=== PATIENT | female | born 1950 | race Caucasian/White ===

== ENCOUNTER 2025-11-21 16:04 | Emergency (ER) | payer BC, SELFPAY ==
[2025-11-21 16:07] VITALS: BP 140/78
--- NOTE | 2025-11-21 16:46 | ED.GENMED ---
History of Present Illness
General
Chief Complaint: Dizziness
Source: patient
Exam Limitations: none
Time Seen by Provider: 11/21/25 16:44
History of Present Illness
History of Present Illness:
75yoF with a history of lupus presenting for evaluation of dizziness. Patient reports intermittent dizziness for the past 6 days. She woke up 6 days ago feeling like the room was spinning. Symptoms have been intermittent since then and are
triggered with certain head movements. She denies any current dizziness but does become dizzy if she lays flat or leans forward. She fell twice due to her symptoms but did not lose consciousness. She also is having nausea but has not vomited.
She has chronic tinnitus which seems worse since her symptoms began. She was sick about 3 weeks ago with a URI. Patient went to urgent care so that they could attempt the Lencho maneuver but she was sent to the ED for evaluation. She denies any
headache, visual changes, paresthesias, weakness, chest pain, shortness of breath.
Phy Exam
General Physical Exam
General Presentation: well appearing and no apparent distress
General Skin: warm and dry
General Habitus: normal
General Mental: alert
ENT Exam
ENT Exam: TM's normal, pharynx normal and normocephalic
Eye Exam
Eye Exam: PERRL, EOMI and conjunctiva normal
Cardiovascular Exam
Cardiovascular Exam: regular rate/rhythm
Pulmonary Exam
Pulmonary Exam: lungs clear, no respiratory distress, no rales, no crackles, no rhonchi and no wheezing
Neurological Exam
Neurological Exam: alert, no motor deficits and other (PERRL. EOMs intact. Normal finger to nose and heel to santos bilaterally. )
[place] Coma Scale
Eye Opening: Spontaneous
Verbal Response: Oriented
Motor Response: Obeys Commands
GCS Total Score: 15
Skin Exam
Skin Exam: normal color and warm/dry
Psychiatric Exam
Psychiatric Exam: normal mood/affect
Course
Orders/Labs/Results
Orders:
Orders
11/21/25 16:14
EKG [Electrocardiogram (*1)] Urgent
Reason for Study: Vertigo / Dizzy
11/21/25 16:15
EKG- Treatment ONCE
11/21/25 16:52
Pt Eval And Treat Urgent
Treatment: vestibular eval
Activity Level: Out of Bed- Ad Cherelle
11/21/25 17:28
CT Head W/o Iv Contrast Urgent
Comment:
Reason For Exam: dizziness
11/21/25 17:57
Complete Blood Count/With Diff Urgent
Comprehensive Metabolic Panel Urgent
11/21/25 19:47
Meclizine [Antivert] 25 mg PO NOW STA
Abnormal Lab Results
11/21/25
17:57
WBC 4.3 L 10^3/uL
(4.8-10.8)
RBC 4.15 L 10^6/uL
(4.20-5.40)
Hct 36.8 L %
(37.0-47.0)
MCHC 32.9 L g/dL
(33.0-37.0)
Absolute Lymphs (auto) 0.9 L 10^3/uL
(1.2-3.4)
BUN 18 H mg/dl
(7-17)
11/21/25 17:57
11/21/25 17:57
Vital Signs
Initial and Last Documented VS:
Initial Vital Signs
Temp Pulse Resp BP Pulse Ox
97.5 F 53 20 140/78 100
11/21/25 16:07 11/21/25 16:07 11/21/25 16:07 11/21/25 16:07 11/21/25 16:07
Last Documented Vital Signs
Temp Pulse Resp BP Pulse Ox
97.5 F 58 15 133/72 99
11/21/25 16:07 11/21/25 18:30 11/21/25 18:00 11/21/25 18:00 11/21/25 18:30
MDM/Problems Addressed
Differential Diagnosis Includes:
75yoF here with intermittent dizziness x 6 days. Feels like room is spinning. Worse with head movement. Currently asymptomatic. VSS. Patient well-appearing no distress. Normal [id number] and [id number] testing. No visualized nystagmus.
Differential diagnosis includes: BPPV, vestibular neuritis, labyrinthitis, consider CVA although less likely as symptoms have resolved currently
Initial ED plan: PT consult initially ordered for vestibular testing although unfortunately they are no longer in house. Will check basic labs and head CT. Triage EKG shows sinus bradycardia without ischemic changes.
*Pulse Oximetry
SaO2: 100
Patient hypoxic: no
*EKG
Interpreted by ED Provider?: Yes
EKG Intrepretation Date: 11/21/25
Heart Rate: 55
Rate: bradycardiac
Rhythm: sinus
Sylva: normal axis
Interval: normal interval
QRS Pattern: normal QRS
Ischemia: no ischemia
*Critical Care Note
Total Time (30-74mins, 75-104mins- exclusive of procedures): Not Applicable
Update Note
Update Note:
Labs unremarkable and head CT normal. I performed Lencho maneuver on both sides and symptoms reproduced with movement of head to left side. Patient able to ambulate independently and feels comfortable with discharge. Prescription for meclizine as
well as outpatient vestibular therapy provided. She was instructed to follow-up closely with her PCP and ED return precautions reviewed. Patient in agreement with plan and she was discharged in stable condition.
ED Attending Note
-
Portions of this chart may have been created with voice recognition software.� Occasional wrong word or��sound alike� substitutions may have occurred due to the inherent limitations of voice recognition software.
Discharge Plan
Departure
Patient Disposition: Home (Routine Discharge)
Date of Disposition: 11/21/25
Time of Disposition: 19:50
Patient with high blood pressure during this ER visit?: No
Discharge Problem:
Peripheral vertigo
Instructions: Vertigo (a Type of Dizziness) (DC)
Prescriptions:
New
meclizine 25 mg tablet
25 mg PO TID PRN (Reason: dizziness) Qty: 20 0RF
Referrals:
[facility] [Provider Group]
NONE,* [Family Provider, Internal Medicine]
Activity Restrictions/Additional Instructions:
Take meclizine as needed for dizziness. You may perform the Lencho maneuver at home if you found this helpful.
Please call to make follow-up appointments with your family doctor as well as vestibular therapy.
Return to the ER with any new or worsening symptoms.
Interventions
Interventions:
*General Assessment Last Done: 11/21/25 16:07
*Neglect/Abuse Screening Last Done: 11/21/25 16:07
*ED COVID-19 Vaccine History Last Done: 11/21/25 17:57
*ED Influenza Vaccine History Last Done: 11/21/25 17:57
*Risk Screen - Suicide (C-SSRS) Last Done: 11/21/25 16:07
*Nursing Disposition Last Done: 11/21/25 19:56
ED- Neurological Assessment Last Done: 11/21/25 17:30
ED- Cardiac Assessment Last Done: 11/21/25 19:15
ED Swallowing Screen Last Done: 11/21/25 19:45
Discharge Date and Time
Discharge Date/Time: 11/21/25 19:57
Print Language: FILIPINO
[2025-11-21 16:47] VITALS: BP 121/82
[2025-11-21 17:00] VITALS: BP 130/72
[2025-11-21 17:58] VITALS: BMI 33.8
[2025-11-21 18:00] VITALS: BP 133/72
[2025-11-21 18:07] LABS: Hematocrit 36.8 % (37.0-47.0); Hemoglobin 12.1 g/dL (12.0-16.0); Mean Corp Hgb Conc. 32.9 g/dL (33.0-37.0); Mean Corpuscular Volume 88.7 fL (81.0-99.0); Nucleated Red Blood Cells % 0 %; Platelet Count 236 10^3/uL (130-400); Red Cell Dist. Width 13.0 % (11.5-14.5)
[2025-11-21 18:29] LABS: ALT (SGPT) 14 U/L (0-35); AST (SGOT) 21 U/L (14-36); Albumin 4.0 g/dl (3.5-5.0); Alkaline Phosphatase 91 U/L (38-126); Blood Urea Nitrogen 18 mg/dl (7-17); Calcium 9.6 mg/dl (8.4-10.2); Carbon Dioxide 26 mmol/L (22-30); Chloride 107 mmol/L (98-107); Estimated Creatinine Clearance 89 ml/min; Glucose 87 mg/dl (70-99); Potassium 4.7 mmol/L (3.5-5.1); Sodium 137 mmol/L (135-145); Total Protein 6.7 g/dl (6.3-8.2); eGFR > 60.00
[2025-11-21] MEDS: ANTIVERT 25 MG PO (19:52)
== END 2025-11-21 19:57 | disposition home or self-care (01) ==
LOC: EMR 16:04
PROVIDERS: Physician Assistant; EMERGENCY PHYSICIAN Emergency Medicine
DX: H81.399 Other peripheral vertigo, unspecified ear (principal); H93.19 Tinnitus, unspecified ear
CPT/HCPCS: 99284; 70450; 80053; 85025; 93005

== ENCOUNTER 2025-11-28 08:32 | Outpatient (RCR) | payer BC, SELFPAY | END 2025-11-28 23:59 | disposition home or self-care (01) | LOC: RPT 08:32 | PROVIDERS: ATTENDING PHYSICIAN Internal Medicine Rheumatology | DX: H81.10 Benign paroxysmal vertigo, unspecified ear (principal); R42 Dizziness and giddiness; R26.89 Other abnormalities of gait and mobility; Z73.6 Limitation of activities due to disability | CPT/HCPCS: 97162; 97530 ==